=== PATIENT | female | born 1985 | race Caucasian/White ===

== ENCOUNTER 2018-06-09 20:18 | Inpatient (IN) | payer MEDICAID, OTHER ==
[2018-06-09] MEDS ORDERED: ONDANSETRON ODT 4 MG TAB PO STA (21:18)
--- NOTE | 2018-06-09 21:23 | ED ---
Psych HPI - General Source: patient Mode of arrival: ambulatory <Eliane Bhat - Last Filed: 06/10/18 02:35> <Nga Hi - Last Filed: 06/10/18 22:01> - General Chief Complaint: Psychiatric Symptoms Stated Complaint: Severely depressed, can't keep anything down Time Seen by Provider: 06/09/18 21:07 - History of Present Illness Initial Comments: 33-year-old female patient presents to the emergency department today with multiple complaints. Patient is currently a resident of [facility] for addiction to cocaine and heroin. Patient states that she has had no drugs or alcohol since 05/27/2018. Patient states that she currently has upper respiratory symptoms and a cough. Coughing up clear sputum. No fevers. States that she is experiencing depression and suicidal ideation. States that she has had severe depression since arriving to [place]. States that she did have suicidal ideation a couple of days ago. She denies any hallucinations. States that she is eating and drinking however she is having nausea after eating with every meal. Patient denies any vomiting. States she is constipated. Patient is also complaining of vaginal burning and odorous discharge. Denies any abdominal pain or new low back pain. She is concerned she may have an STD. She is unsure if she is . Patient denies any recent rash, shortness breath, chest pain, numbness, tingling, dizziness, weakness, hematuria, dysuria, urinary urgency, urinary frequency, headache, visual changes, or any other complaints. (Eliane Bhat) - Related Data Allergies Allergy/AdvReac Type Severity Reaction Status Date / Time benztropine [From Cogentin] Allergy Rash/Hives Verified 06/10/18 10:29 fluphenazine [From Prolixin] Allergy Anaphylaxis Verified 06/10/18 10:29 haloperidol [From Haldol] Allergy Anaphylaxis Verified 06/10/18 10:29 Latex, Natural Rubber Allergy Rash/Hives Verified 06/10/18 10:29 paliperidone [From Invega] Allergy Unknown Verified 06/10/18 10:29 sertraline [From Zoloft] Allergy Hallucinati Verified 06/10/18 10:29 ons Review of Systems ROS Other: All systems not noted in ROS Statement are negative. <Eliane Bhat - Last Filed: 06/10/18 02:35> ROS Other: All systems not noted in ROS Statement are negative. <Nga Hi P - Last Filed: 06/10/18 22:01> ROS Statement: Those systems with pertinent positive or pertinent negative responses have been documented in the HPI. Past Medical History Past Medical History: No Reported History History of Any Multi-Drug Resistant Organisms: None Reported Past Surgical History: Breast Surgery Past Psychological History: PTSD Smoking Status: Current every day smoker Past Alcohol Use History: Abuse Past Drug Use History: Cocaine, Heroin, Opiates <Eliane Bhat M - Last Filed: 06/10/18 02:35> General Exam Limitations: no limitations General appearance: alert, in no apparent distress, other (This is a well- developed, well-nourished adult female patient in no acute distress. Vital signs upon presentation are temperature 98.2F, pulse 77, respirations 20, blood pressure 102/70, pulse ox 99% on room air.) Eye exam: Present: normal appearance, PERRL, EOMI. Absent: scleral icterus, conjunctival injection, periorbital swelling ENT exam: Present: normal exam, normal oropharynx, mucous membranes moist Neck exam: Present: normal inspection. Absent: tenderness, meningismus, lymphadenopathy Respiratory exam: Present: normal lung sounds bilaterally. Absent: respiratory distress, wheezes, rales, rhonchi, stridor Cardiovascular Exam: Present: regular rate, normal rhythm, normal heart sounds. Absent: systolic murmur, diastolic murmur, rubs, gallop, clicks GI/Abdominal exam: Present: soft, tenderness (mild suprapubic tenderness), normal bowel sounds. Absent: distended, guarding, rebound, rigid External exam: Present: normal external exam Speculum exam: Present: vaginal discharge (White discharge), other (Painful speculum exam. ) By manual exam: Present: normal by manual exam. Absent: cervical motion tenderness, adnexal tenderness Neurological exam: Present: alert, oriented X3, CN II-XII intact Psychiatric exam: Present: normal affect, normal mood Skin exam: Present: warm, dry, intact, normal color. Absent: rash <Eliane Bhat M - Last Filed: 06/10/18 02:35> Vital Signs 06/09/18 06/10/18 06/10/18 20:54 07:28 08:04 Temperature 98.2 F 98.5 F Pulse Rate 77 68 Respiratory 20 15 Rate Blood Pressure 102/70 101/65 O2 Sat by Pulse 99 99 Oximetry 06/10/18 16:08 Temperature 98 F Pulse Rate 68 Respiratory 18 Rate Blood Pressure 110/70 O2 Sat by Pulse 99 Oximetry Medical Decision Making - Lab Data Result diagrams: 06/09/18 23:35 06/09/18 23:35 - Radiology Data Radiology results: report reviewed, image reviewed <Eliane Bhat - Last Filed: 06/10/18 02:35> - Lab Data Result diagrams: 06/09/18 23:35 06/09/18 23:35 <Nga Hi - Last Filed: 06/10/18 22:01> - Medical Decision Making 33-year-old female patient presented to the emergency department today for evaluation of suicidal ideation. Patient was also complaining of nausea. She was concerned about STDs. Patient labs reviewed and are unremarkable. We did treat patient for STDs with Rocephin, azithromycin, and Flagyl. She was seen and evaluated by emergency psychiatric services. Is felt that she would benefit from inpatient admission at this time however we do not have beds available so she will be transferred. Petition was filed by emergency psych services nurse and certification was performed by my attending Dr. Hi. (Eliane Bhat) The patient was seen and evaluated, the patient did endorse to me that she is feeling suicidal and does plan to complete suicide by overdose on heroin. The patient was petition and I completed the clinical certification, I do feel the patient requires inpatient psychiatric evaluation. Patient was medically cleared for transfer to a psychiatric facility. (Nga Hi) - Lab Data Lab Results 06/09/18 06/09/18 06/09/18 Range/Units 21:52 21:52 23:35 WBC (3.8-10.6) k/uL RBC (3.80-5.40) m/uL Hgb (11.4-16.0) gm/dL Hct (34.0-46.0) % MCV (80.0-100.0) fL MCH (25.0-35.0) pg MCHC (31.0-37.0) g/dL RDW (11.5-15.5) % Plt Count (150-450) k/uL Neutrophils % % Lymphocytes % % Monocytes % % Eosinophils % % Basophils % % Neutrophils # (1.3-7.7) k/uL Lymphocytes # (1.0-4.8) k/uL Monocytes # (0-1.0) k/uL Eosinophils # (0-0.7) k/uL Basophils # (0-0.2) k/uL Sodium (137-145) mmol/L Potassium (3.5-5.1) mmol/L Chloride (98-107) mmol/L Carbon Dioxide (22-30) mmol/L Anion Gap mmol/L BUN (7-17) mg/dL Creatinine (0.52-1.04) mg/dL Est GFR (CKD-EPI)AfAm (>60 ml/min/1.73 sqM) Est GFR (CKD-EPI)NonAf (>60 ml/min/1.73 sqM) Glucose (74-99) mg/dL Calcium (8.4-10.2) mg/dL Total Bilirubin (0.2-1.3) mg/dL AST (14-36) U/L ALT (9-52) U/L Alkaline Phosphatase (38-126) U/L Total Protein (6.3-8.2) g/dL Albumin (3.5-5.0) g/dL Amylase (30-110) U/L Lipase (23-300) U/L Urine Color Yellow Urine Appearance Cloudy H (Clear) Urine pH 6.0 (5.0-8.0) Ur Specific Canvas 1.026 (1.001-1.035) Urine Protein Trace H (Negative) Urine Glucose (UA) Negative (Negative) Urine Ketones Trace H (Negative) Urine Blood Negative (Negative) Urine Nitrite Negative (Negative) Urine Bilirubin Negative (Negative) Urine Urobilinogen 3.0 (<2.0) mg/dL Ur Leukocyte Esterase Small H (Negative) Urine RBC 1 (0-5) /hpf Urine WBC 4 (0-5) /hpf Ur Squamous Epith Cells 12 H (0-4) /hpf Urine Bacteria Occasional H (None) /hpf Urine Mucus Many H (None) /hpf Urine HCG, Qual Not Detected (Not Detectd) Urine Opiates Screen Not Detected (NotDetected) Ur Oxycodone Screen Not Detected (NotDetected) Urine Methadone Screen Not Detected (NotDetected) Ur Propoxyphene Screen Not Detected (NotDetected) Ur Barbiturates Screen Not Detected (NotDetected) U Tricyclic Antidepress Not Detected (NotDetected) Ur Phencyclidine Scrn Not Detected (NotDetected) Ur Amphetamines Screen Not Detected (NotDetected) U Methamphetamines Scrn Not Detected (NotDetected) U Benzodiazepines Scrn Not Detected (NotDetected) Urine Cocaine Screen Not Detected (NotDetected) U Marijuana (THC) Screen Not Detected (NotDetected) Trichomonas Ag (Rapid) Negative (Negative) 06/09/18 06/09/18 Range/Units 23:35 23:35 WBC 6.2 (3.8-10.6) k/uL RBC 4.19 (3.80-5.40) m/uL Hgb 10.4 L (11.4-16.0) gm/dL Hct 32.7 L (34.0-46.0) % MCV 78.2 L (80.0-100.0) fL MCH 24.8 L (25.0-35.0) pg MCHC 31.7 (31.0-37.0) g/dL RDW 15.1 (11.5-15.5) % Plt Count 312 (150-450) k/uL Neutrophils % 45 % Lymphocytes % 41 % Monocytes % 7 % Eosinophils % 4 % Basophils % 1 % Neutrophils # 2.8 (1.3-7.7) k/uL Lymphocytes # 2.5 (1.0-4.8) k/uL Monocytes # 0.4 (0-1.0) k/uL Eosinophils # 0.3 (0-0.7) k/uL Basophils # 0.1 (0-0.2) k/uL Sodium 139 (137-145) mmol/L Potassium 4.1 (3.5-5.1) mmol/L Chloride 107 (98-107) mmol/L Carbon Dioxide 25 (22-30) mmol/L Anion Gap 7 mmol/L BUN 16 (7-17) mg/dL Creatinine 0.80 (0.52-1.04) mg/dL Est GFR (CKD-EPI)AfAm >90 (>60 ml/min/1.73 sqM) Est GFR (CKD-EPI)NonAf >90 (>60 ml/min/1.73 sqM) Glucose 96 (74-99) mg/dL Calcium 9.2 (8.4-10.2) mg/dL Total Bilirubin 0.1 L (0.2-1.3) mg/dL AST 15 (14-36) U/L ALT 23 (9-52) U/L Alkaline Phosphatase 38 (38-126) U/L Total Protein 6.8 (6.3-8.2) g/dL Albumin 4.1 (3.5-5.0) g/dL Amylase 55 (30-110) U/L Lipase 105 (23-300) U/L Urine Color Urine Appearance (Clear) Urine pH (5.0-8.0) Ur Specific Canvas (1.001-1.035) Urine Protein (Negative) Urine Glucose (UA) (Negative) Urine Ketones (Negative) Urine Blood (Negative) Urine Nitrite (Negative) Urine Bilirubin (Negative) Urine Urobilinogen (<2.0) mg/dL Ur Leukocyte Esterase (Negative) Urine RBC (0-5) /hpf Urine WBC (0-5) /hpf Ur Squamous Epith Cells (0-4) /hpf Urine Bacteria (None) /hpf Urine Mucus (None) /hpf Urine HCG, Qual (Not Detectd) Urine Opiates Screen (NotDetected) Ur Oxycodone Screen (NotDetected) Urine Methadone Screen (NotDetected) Ur Propoxyphene Screen (NotDetected) Ur Barbiturates Screen (NotDetected) U Tricyclic Antidepress (NotDetected) Ur Phencyclidine Scrn (NotDetected) Ur Amphetamines Screen (NotDetected) U Methamphetamines Scrn (NotDetected) U Benzodiazepines Scrn (NotDetected) Urine Cocaine Screen (NotDetected) U Marijuana (THC) Screen (NotDetected) Trichomonas Ag (Rapid) (Negative) - Radiology Data Two-view x-ray of the chest is obtained. Heart mediastinum are normal. Lungs are clear. Diaphragm is normal. Bony thorax appears normal. Impression by Dr. Ji shows normal chest. (Eliane Bhat) Disposition - Out of Hospital Transfer - Req. Specs Out of Hospital Transfer - Requested Specifics: Psychiatric Non-ICU <Eliane Bhat M - Last Filed: 06/10/18 02:35> <Nga Hi - Last Filed: 06/10/18 22:01> Clinical Impression: Suicidal ideation, STI (sexually transmitted infection) Disposition: TRANSFER TO PSYCH HOSP/UNIT Condition: Serious Referrals: None,Stated [Primary Care Provider] - 1-2 days
[2018-06-09 22:03] LABS: Appearance,Urine Cloudy (Clear); Bacteria,Urine Occasional /hpf; Bilirubin,Urine Negative (Negative); Blood,Urine Negative (Negative); Color,Urine Yellow; Glucose,Urine (UA) Negative (Negative); Ketones,Urine Trace (Negative); Leukocyte Esterase,Urine Small (Negative); Mucus,Urine Many /hpf; Nitrite,Urine Negative (Negative); Protein,Urine Trace (Negative); RBC,Urine 1 /hpf (0-5); Specific Gravity,Urine 1.026 (1.001-1.035); Squamous Epithelial Cell,Urine 12 /hpf (0-4); WBC,Urine 4 /hpf (0-5)
[2018-06-09 22:16] LABS: Amphetamine Screen,Urine Not Detected (NotDetected); Barbiturate Screen,Urine Not Detected (NotDetected); Benzodiazepines Screen,Urine Not Detected (NotDetected); Cocaine Screen,Urine Not Detected (NotDetected); Methadone Screen, Urine Not Detected (NotDetected); Opiate Screen,Urine Not Detected (NotDetected); Oxycodone Screen, Urine Not Detected (NotDetected); Phencyclidine Screen,Urine Not Detected (NotDetected); Tricyclic Antidepressant,Urine Not Detected (NotDetected); Urn Cannabinoid Scrn Not Detected (NotDetected)
--- NOTE | 2018-06-09 22:34 | XR ---
EXAMINATION TYPE: XR chest 2V DATE OF EXAM: 06/09/2018 COMPARISON: NONE HISTORY: Anxiety chest pain TECHNIQUE: Frontal and lateral views of the chest are obtained. FINDINGS: Heart and mediastinum are normal. Lungs are clear. Diaphragm is normal. Bony thorax appear s normal. IMPRESSION: Normal chest
[2018-06-09] MEDS ORDERED: SODIUM CHLORIDE 0.9% 1,000 ML IV ONE (23:23)
[2018-06-09 23:48] LABS: Basophils # (A) 0.1 k/uL (0-0.2); Basophils % (A) 1 %; Eosinophils # (A) 0.3 k/uL (0-0.7); Eosinophils % (A) 4 %; HCT 32.7 % (34.0-46.0); HGB 10.4 gm/dL (11.4-16.0); Lymphocytes # (A) 2.5 k/uL (1.0-4.8); Lymphocytes % (A) 41 %; MCH 24.8 pg (25.0-35.0); MCHC 31.7 g/dL (31.0-37.0); MCV 78.2 fL (80.0-100.0); Mean Platelet Volume 7.5; Monocytes # (A) 0.4 k/uL (0-1.0); Monocytes % (A) 7 %; Neutrophils # (A) 2.8 k/uL (1.3-7.7); Neutrophils % (A) 45 %; Platelet Count 312 k/uL (150-450); RBC 4.19 m/uL (3.80-5.40); RDW 15.1 % (11.5-15.5); WBC 6.2 k/uL (3.8-10.6)
[2018-06-09 23:58] LABS: ALT 23 U/L (9-52); AST 15 U/L (14-36); Albumin 4.1 g/dL (3.5-5.0); Alkaline Phosphatase 38 U/L (38-126); Amylase 55 U/L (30-110); Anion Gap 7 mmol/L; Blood Urea Nitrogen 16 mg/dL (7-17); Calcium 9.2 mg/dL (8.4-10.2); Carbon Dioxide 25 mmol/L (22-30); Chloride 107 mmol/L (98-107); Glucose 96 mg/dL (74-99); Lipase 105 U/L (23-300); Potassium 4.1 mmol/L (3.5-5.1); Sodium 139 mmol/L (137-145); Total Bilirubin 0.1 mg/dL (0.2-1.3); Total Protein 6.8 g/dL (6.3-8.2)
[2018-06-10] MEDS ORDERED: metroNIDAZOLE 500 MG TAB PO STA (02:13)
[2018-06-10] MEDS ORDERED: cefTRIAXone 250 MG VIAL IM STA (02:13)
[2018-06-10] MEDS ORDERED: AZITHROMYCIN 500 MG TAB PO STA (02:13)
[2018-06-10] MEDS ORDERED: BENZONATATE 100 MG CAP PO STA (08:02)
[2018-06-10] MEDS ORDERED: NICOTINE 21MG/24HR PATCH TRANSDERM STA (15:38)
[2018-06-10] MEDS ORDERED: hydrOXYzine HCL 50 MG/ML 1 ML VIAL IM STA (20:20)
[2018-06-11 14:31] LABS: C. trachomatis,PCR Negative (Neg,Equiv); Chlamydia trachomatis Source Vagina; N. gonorrhoeae,PCR Negative (Neg,Equiv); Neisseria Source Cervix
[2018-06-11] MEDS ORDERED: guaiFENesin SYRUP 100MG/5ML 200 MG/10 ML CUP PO PRN (21:31)
[2018-06-12] MEDS ORDERED: MAG HYDROX/AL HYDROX/SIMETH 30 ML CUP PO PRN (14:57)
[2018-06-12] MEDS ORDERED: MAGNESIUM HYDROXIDE 2,400 MG/10 ML CUP PO PRN (14:57)
[2018-06-12] MEDS ORDERED: ACETAMINOPHEN TAB 325 MG TAB PO PRN (14:57)
[2018-06-12] MEDS: NICOTINE 14MG/24HR PATCH TRANSDERM SCH (16:11)
[2018-06-12] MEDS ORDERED: AZITHROMYCIN 500 MG TAB PO STA (17:57)
--- NOTE | 2018-06-12 18:00 | P.HPMEDMHU ---
History of Present Illness H&P Date: 06/12/18 Chief Complaint: Suicidal ideation 33-year-old female with no past medical history presents to the ED for suicidal ideation. Patient reports her suicidal ideation began when she felt dope sick. Patient states she has not consumed any drugs or alcohol since 05/27/2018. Patient has no specific complaints today, she would like to leave the Psychiatry unit. She endorses lower extremity swelling, only when hospitalized. Patient reports a productive cough for the past week. Cough is productive of green sputum. Patient endorses sick contacts in rehab. Note, patient reports nausea especially with meals. She denies any vomiting. She denies any changes in urination. Patient reports constipation, last bowel movement was today. Patient denies any changes in sleep or appetite. In the ED chest x-ray was negative. Review of lab work showed hemoglobin of 10.4. UA showed trace proteinuria, small leukocyte esterase. Review of Systems All systems: negative Past Medical History Past Medical History: No Reported History History of Any Multi-Drug Resistant Organisms: None Reported Past Surgical History: Breast Surgery Past Psychological History: PTSD Smoking Status: Current every day smoker Past Alcohol Use History: Abuse Past Drug Use History: Cocaine, Heroin, Opiates Medications and Allergies Home Medications Medication Instructions Recorded Confirmed Type No Known Home Medications 06/10/18 06/10/18 History Allergies Allergy/AdvReac Type Severity Reaction Status Date / Time benztropine [From Cogentin] Allergy Rash/Hives Verified 06/10/18 10:29 fluphenazine [From Prolixin] Allergy Anaphylaxis Verified 06/10/18 10:29 haloperidol [From Haldol] Allergy Anaphylaxis Verified 06/10/18 10:29 Latex, Natural Rubber Allergy Rash/Hives Verified 06/10/18 10:29 paliperidone [From Invega] Allergy Unknown Verified 06/10/18 10:29 sertraline [From Zoloft] Allergy Hallucinati Verified 06/10/18 10:29 ons Physical Exam Vitals: Vital Signs Temp Pulse Pulse Resp BP BP Pulse Ox 06/12/18 12:40 87 18 131/69 06/12/18 12:39 98 F 68 16 124/70 100 06/12/18 06:45 98.6 F 86 18 131/61 98 06/11/18 22:01 97.8 F 81 16 112/54 98 Intake and Output 06/12/18 06/12/18 06/12/18 06:59 14:59 22:59 Other: Weight 72.631 kg General: non toxic, no distress, appears at stated age Derm: warm, dry Head: atraumatic, normocephalic, symmetric Eyes: EOMI, no lid lag, anicteric sclera Mouth: no lip lesion, mucus membranes moist Cardiovascular: S1S2 reg, no murmur, positive posterior tibial pulse bilateral, Lungs: CTA bilateral, no rhonchi, no rales , no accessory muscle use Abdominal: soft, nontender to palpation, no guarding, no appreciable organomegaly Ext: no gross muscle atrophy, 1+ non pitting edema, no contractures Neuro: CN II-XI grossly intact, no focal neuro deficits Psych: Alert, oriented, appropriate affect Cranial Nerve Examination - Cranial Nerves Cranial Nerve II- Optic: Intact Cranial Nerve III- Oculomotor: Intact Cranial Nerve IV- Trochlear: Intact Cranial Nerve V- Trigeminal: Intact Cranial Nerve - Abducens: Intact Cranial Nerve VII- Facial: Intact Cranial Nerve VIII- Auditory: Intact Cranial Nerve IX- Glossopharyngeal: Intact Cranial Nerve X- Vagus: Intact Cranial Nerve XI- Accessory: Intact Cranial Nerve XII- Hypoglossal: Intact Results CBC & Chem 7: 06/09/18 23:35 06/09/18 23:35 Thrombosis Risk Factor Assmnt - Choose All That Apply Any of the Below Risk Factors Present?: No Other Risk Factors: No Other congenital or acquired thrombophilia - If yes, enter type in comment: No Thrombosis Risk Factor Assessment Level: Very Low Risk Assessment and Plan Assessment: Assessment and Plan 1. LE swelling: Non pitting. Trace protein on UA. No signs of HF during H&P. Will continue to monitor. 2. Cervical radiculopathy: Chronic pain per patient. Tylenol 650 mg PO Q4 PRN. 3. Nausea: Related to meals per patient. Trial of Maalox 30 ml PO Q4 PRN. Will add Pepcid 20 mg PO BID. Continue to monitor. 4. Cough: CXR normal. Likely acute bronchitis. Will try Mucinex 1200 mg PO BID. Azithromycin 500 mg PO QD x 3 days. 5. Substance abuse: Nicotine patch. 6. Anemia: Hg 10.4 Hct 32.7 MCV 78.2 likely Fe def. anemia. Continue to monitor. 7. Bacteruria: Asymptomatic. Bacteria on UA but dirty. Repeat.
[2018-06-12] MEDS: guaiFENesin 600 MG TABLET.ER PO SCH (21:00)
[2018-06-12] MEDS: FAMOTIDINE 20 MG TAB PO SCH (21:01)
[2018-06-13] MEDS: guaiFENesin 600 MG TABLET.ER PO SCH ×2 (08:42→21:08)
[2018-06-13] MEDS: FAMOTIDINE 20 MG TAB PO SCH ×2 (08:42→21:09)
[2018-06-13] MEDS: NICOTINE 14MG/24HR PATCH TRANSDERM SCH (08:43)
[2018-06-13] MEDS: DULoxetine HCL 30 MG CAPSULE.DR PO SCH (09:54)
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
[2018-06-14] MEDS: FAMOTIDINE 20 MG TAB PO SCH ×2 (09:56→20:29)
[2018-06-14] MEDS: NICOTINE 14MG/24HR PATCH TRANSDERM SCH (09:56)
[2018-06-14] MEDS: guaiFENesin 600 MG TABLET.ER PO SCH ×3 (09:56→20:29)
[2018-06-14] MEDS: DULoxetine HCL 30 MG CAPSULE.DR PO SCH (09:56)
--- NOTE | 2018-06-14 10:15 | P.PN ---
Progress Note - Text Interval history: The patient is found in her room she reluctantly follows me to the library to speak. She states her mood is good. She reports the Cymbalta gave her severe nausea yesterday and she vomited and she will no longer take that medication. She states that she will not take any psychotropic medication. She states that she wants to be discharged so that she can go to her three-quarter house. I did inform her that [facility] was willing to have her return if she is stable. She reports eating breakfast this morning she states that she did sleep off and on last night staff recorded she slept throughout the night. She has not been participating in groups this morning she is encouraged to do so. Mental status exam: The patient is alert eye contact is intermittent. She has little spontaneous speech but does provide an answer to questions asked. She reports her mood is good affect is bland. She reports some discomfort being in crowds and talking to people about her personal information. She is reporting no auditory or visual hallucinations she is endorsing no specific delusions today. She demonstrates mild psychomotor slowing. She appears distracted but again denies any hallucinations or racing thoughts. Insight and judgment limited. She demonstrates no verbal or physical aggressiveness. She maintains a calm demeanor throughout the interaction. He demonstrates no abnormal involuntary movements. Plan: The patient's will be monitored for safety. She is encouraged to participate in the milieu so that staff members can interact with her which will aid in our assessment of her current status. It is difficult to tell if she is underreporting symptoms. Vital signs reviewed. I will confer with staff during treatment team meeting regarding her behavior over the last 24 hours. She does seem to have a good plan of returning to [facility] and then later three-quarter housing afterwards.
[2018-06-15] MEDS: NICOTINE 14MG/24HR PATCH TRANSDERM SCH (11:12)
[2018-06-15] MEDS: DULoxetine HCL 30 MG CAPSULE.DR PO SCH (11:12)
[2018-06-15] MEDS: FAMOTIDINE 20 MG TAB PO SCH ×2 (11:12→20:17)
[2018-06-15] MEDS: guaiFENesin 600 MG TABLET.ER PO SCH ×2 (11:12→20:16)
--- NOTE | 2018-06-15 11:30 | P.PN ---
Progress Note - Text Interval history: The patient is found in her room she follows me to an interview room. She reports her mood is better today. Staff report that she continues to avoid a.m. groups but did make it to some of the groups in the afternoon yesterday. It appears she was more verbal and less guarded. Again she is able to return to [facility] upon discharge so long is a perceive she is stable to complete their program. The patient is encouraged to participate fully in the milieu so that we able to fully evaluate her and provide that information to [facility]. She continues to not want any psychotropic medication prescribed. She states that she is using this time to think about changes she will have to make in her life. She states after leaving [facility] she will attend a three-quarter home in [place]. She states she doesn't know anyone there but that will be of benefit. Mental status exam: The patient is alert she is still somewhat guarded she is more expressive verbally than yesterday. She demonstrates more range of affect. She reports no acute suicidal or homicidal ideation intent or plan. She is endorsing no auditory or visual hallucinations or specific delusions. Again there is some concern she may be underreporting symptoms. She demonstrates no verbal or physical aggressiveness. She is oriented to person place and date. She has some spontaneous speech but mainly response to questions posed to her. Insight and judgment limited. Plan: We will continue to evaluate the patient she is encouraged to fully participate in the milieu. She does not wish to take any psychotropic medications. If she demonstrates sufficient stability she may be appropriate for discharge in the next 1-2 days. Vital signs reviewed.
[2018-06-16 07:09] VITALS: BP 98/50; PULSE 71; RESP 18; TEMP 98.5
[2018-06-16] MEDS: guaiFENesin 600 MG TABLET.ER PO SCH ×2 (09:24→20:48)
[2018-06-16] MEDS: NICOTINE 14MG/24HR PATCH TRANSDERM SCH (09:25)
[2018-06-16] MEDS: FAMOTIDINE 20 MG TAB PO SCH ×2 (09:25→20:47)
--- NOTE | 2018-06-16 10:07 | P.PN ---
Progress Note - Text Progress Note Date: 06/16/18 Interval History: Patient is a 33-year-old female being seen in coverage for Dr. Scruggs. Patient came to the interview room, before coming to the interview room with me she retrieved a notebook and other papers that were under the covers in bed with her and brought them to the interview room. Patient states that she is ready to go back to rehab because she is no longer feeling suicidal. Patient could not tell me why she been feeling suicidal at [facility] other than that she was in withdrawal however the patient had been at [facility] from May 29 until June 09. Patient states that she doesn't need any medications and doesn't have any complaints or symptoms currently. Mental Status: Appearance/Attitude: Patient is casually dressed, makes no eye contact and was superficially cooperative. Behavior: Patient does not exhibit any psychomotor agitation or retardation Speech/Language: Patient's speech is of normal volume and rhythm and she is coherent Thought Process: Patient's responses are goal directed however brief and non- elaborative and she only responds to questions Thought Content: Patient denies auditory or visual hallucinations no delusions or paranoid ideation were elicited. However the patient had a notebook and other papers under the covers in bed with her which she retrieved and brought to my office and never used to show me anything or review with me. Patient states that she is sleeping here but doesn't feel rested because of the interruptions. She says that she attends groups only in the afternoon. Patient states that there is nothing wrong with her and that she had been feeling suicidal at [facility] due to withdrawing from heroin however the patient had been at [facility] for 11 days prior to her transfer to our hospital. Suicidal/Homicidal Ideation: Patient denies any current suicidal or homicidal ideation Sensorium/Cognition: Patient is alert and oriented to person, place and time Mood/Affect: Patient's mood is guarded her affect is blunted Insight/Judgment: Patient's insight and judgment are fair Assessment: Patient came with me to the interview room bringing papers in a notebook with her which were not used and had been kept under the covers in her room with her. Patient remains guarded, she responds only to questions with very brief and non-elaborative responses. Patient states that she was feeling suicidal due to hair when withdrawal although she had been at [facility] for 11 days at time of her transfer. Patient does not feel she needs medication and feels she is ready to leave the hospital. Patient states that she is ready to go back to [facility] that she has not been attending many groups or activities. Patient slept for 6 hours last night. Plan: Patient is currently not receiving any psychotropic medication, continue to encourage the patient to attend and participate in groups and activities to assess her readiness for transfer back to [facility] rehab program. Patient was encouraged to attend groups and activities and participate and consider discharge early next week if this is the case.
[2018-06-17] MEDS: guaiFENesin 600 MG TABLET.ER PO SCH ×2 (09:15→20:20)
[2018-06-17] MEDS: NICOTINE 14MG/24HR PATCH TRANSDERM SCH (09:16)
[2018-06-17] MEDS: FAMOTIDINE 20 MG TAB PO SCH ×2 (09:16→20:20)
--- NOTE | 2018-06-17 12:00 | P.PN ---
Progress Note - Text Progress Note Date: 06/17/18 Interval history: Patient is seen in cross coverage today. She was found in her room, she is agreeable to come to the interview room. She reports that her mood is doing better. She plans on going back to rehab after discharge from the mental health unit. She then plans on going to a three-quarter house. She relays that she is motivated for sobriety. Mental status exam: She is alert and cooperative with the interview. Her speech is fluent, not rapid or pressured. Her thought processes are organized. Her mood she describes is improved. She denies any current thoughts of suicide. She says she has not had any thoughts of suicide since she has been on the mental health unit. She does not voice any thoughts of harming others. There is no evidence of active psychosis. She does not show any agitation. Plan: We'll continue to see this patient in coverage through the weekend and continue to monitor her status. She is looking at discharge planning for Tuesday.
[2018-06-18] MEDS: FAMOTIDINE 20 MG TAB PO SCH ×2 (09:59→20:12)
[2018-06-18] MEDS: guaiFENesin 600 MG TABLET.ER PO SCH ×2 (09:59→20:12)
[2018-06-18] MEDS: NICOTINE 14MG/24HR PATCH TRANSDERM SCH (10:00)
--- NOTE | 2018-06-18 12:38 | P.PN ---
Progress Note - Text Progress Note Date: 06/18/18 Interval history: Patient reports that he slept only about 3 hours last night. She states it's hard for her sleep in the hospital with the checks. She does plan on going back to [facility] after discharge tomorrow and reports that she is motivated to finish her treatment there. She is seen again in cross coverage today. Mental status exam: She is alert and cooperative with the interview. Speech is fluent, not rapid or pressured. Her thought processes are organized. Her mood appears to be stable. She denies any thoughts of harm to self or others. No evidence of psychosis or any agitation. Plan: Plan for patient to return to [facility] to complete treatment there after discharge plans for tomorrow. Continue to monitor patient's status, she denies any thoughts of harm to self or others and relays she has not had any such thoughts since she's been on the unit.
[2018-06-19] MEDS: FAMOTIDINE 20 MG TAB PO SCH ×2 (08:16→20:09)
[2018-06-19] MEDS: NICOTINE 14MG/24HR PATCH TRANSDERM SCH (08:17)
[2018-06-19] MEDS: guaiFENesin 600 MG TABLET.ER PO SCH ×2 (08:17→20:09)
--- NOTE | 2018-06-19 12:27 | P.PN ---
Progress Note - Text Progress Note Date: 06/19/18 Interval History: Patient is a 33-year-old female who was seen today who again brought her notebook and other papers with her but did not refer to them during her interview. Patient has not been attending groups or activities and states that she doesn't because she is anxious. When I asked her how she was going to attend groups at [facility] she stated that she only has to do one week of that "shit" and then she is going to her three-quarter house. Patient states that she's forced to go to groups there and states she came here because she was suicidal there at [facility] due to withdrawing as soon as she got here she wasn't suicidal any longer. Mental Status: Appearance/Attitude: Patient is casually dressed, makes no eye contact and is superficially cooperative Behavior: Patient does not display any psychomotor agitation or retardation Speech/Language: Patient's speech is spontaneous of normal volume and rhythm and she is coherent Thought Process: Patient is goal-directed although her responses are brief limited and non-elaborative Thought Content: Patient denies auditory or visual hallucinations and no paranoid or delusional ideation is elicited. Patient states she is not going to groups because she is anxious in groups, patient states that she's forced to attend groups and [facility] and only has to attend them for 1 more week before she is released to her three-quarter house. Patient is sleeping and eating Suicidal/Homicidal Ideation: Patient denies any current suicidal or homicidal ideation Sensorium/Cognition: Patient is alert and oriented to person, place, and time Mood/Affect: Patient's mood is sullen and her affect is blunted Insight/Judgment: Patient's insight and judgment are fair Assessment: Patient states that she is not attending groups here because she is not forced to and she is anxious in groups. When I discussed possible trial of an antidepressant to target her anxiety she declined. Patient continues to bring her belongings to the meeting with me, and notebook and other papers that makes a reference to them during our meeting. Patient states that she was suicidal when she was at [facility] due to her withdrawal but as soon as she arrived here she was no longer feeling suicidal. Patient has not been attending groups or activities. Plan: A is not currently on any medication and was encouraged to attend groups and activities today and declined any medication for her complaints of anxiety in groups. Plan will be for patient to return to [place] to complete her treatment and possible discharge tomorrow.
[2018-06-20] MEDS: guaiFENesin 600 MG TABLET.ER PO SCH (09:31)
[2018-06-20] MEDS: NICOTINE 14MG/24HR PATCH TRANSDERM SCH (09:31)
[2018-06-20] MEDS: FAMOTIDINE 20 MG TAB PO SCH (09:31)
--- NOTE | 2018-06-20 11:35 | P.DS ---
Providers Date of admission: 06/12/18 12:02 Expected date of discharge: 06/20/18 Attending physician: Edmund Scruggs Consults: 06/12/18 14:57 Consult Physician Routine Consulting Provider: Ash Cavazos Consult Reason/Comments: follow Up H & P Do you want consulting provider notified?: Yes Primary care physician: Stated None - Discharge Diagnosis(es) (1) Depression Current Visit: Yes Status: Acute Priority: High (2) Cocaine use disorder Current Visit: Yes Status: Acute Priority: High (3) Alcohol use disorder Current Visit: Yes Status: Acute Priority: High (4) Opioid use disorder Current Visit: Yes Status: Acute Priority: High Hospital Course: Brief summary of admission note: This patient is a 33-year-old female who presented to the mental health unit through the emergency room with suicidal ideation. The patient had been at [facility] since May 29 the patient was sent to us with acute suicidal ideation. She reported feeling hopeless and overwhelmed. She described having disturbance of sleep low energy and being tearful. She described feelings of anxiety since being off of illicit drugs. She had described concerns that staff at [facility] were putting things in the patient's food to make him sick. For full details please refer to my psychiatric evaluation dated 06/13/2018. Summary hospital course: The patient was admitted to the mental health unit she did sign in voluntarily. We reviewed her presenting symptoms and treatment options. She was willing to try Cymbalta for depression and anxiety but after 1 dose reported an adverse reaction and discontinued the medication. She states she did not want any other psychotropic medication and she had described a long list of adverse reactions to others tried in the past. She felt that she was improving because she was in a safe environment and had more time off of illicit drugs. She reported she wanted to return to [facility] to complete her treatment there and was looking forward to three quarter house placement in [place]. She was seen by internal medicine for routine history and physical exam. The patient states that she has no suicidal ideation no homicidal ideation and no longer has concerns about people trying to harm her. Mental status exam: The patient is a female appearing her stated age. She is dressed in her own clothing hygiene is adequate she is wearing makeup. She attends to the interview she answers questions in a linear fashion. She does have some spontaneous speech and continues to describe future oriented thinking in wanting to go to the three quarter house program. She is reporting no suicidal or homicidal ideation intent or plan. She reports no auditory or visual hallucinations or any specific delusions. She states she no longer has concerns about people contaminating her food and she feels she presented with those symptoms as a residual effect from illicit drug use. She demonstrates no verbal or physical aggressiveness. She is oriented to person place and date. Affect remains constricted eye contact is intermittent. She demonstrates no abnormal involuntary movements. Impressions 1. Depression unspecified, rule out major depressive disorder, rule out post manic stress disorder, cocaine use disorder, opiate use disorder, alcohol use disorder 2. Homeless, unemployment, limited support Plan: The patient will be discharged mental health unit today. She is reporting no thoughts of harming herself or others she is endorsing no symptoms of psychosis she is demonstrating no agitated behavior. She does not appear overtly psychotic hypomanic or manic. She does not require continued hospitalization on an involuntary basis. She does not wish to take a psychotropic medication. She will transfer back to [facility] to complete her inpatient chemical dependency treatment with the plan of transitioning to [place] for three quarter home placement. She is instructed to abstain from all use of alcohol or any other substances as they will elevate her safety risk. She is instructed to return to the hospital with any acute safety concerns. Patient Condition at Discharge: Stable Plan - Discharge Summary Discharge Rx Participant: No New Discharge Prescriptions: New Nicotine 14Mg/24Hr Patch [Habitrol] 1 patch TRANSDERM DAILY #10 patch Discharge Medication List Nicotine 14Mg/24Hr Patch [Habitrol] 1 patch TRANSDERM DAILY #10 patch 06/20/18 [ Rx] Follow up Appointment(s)/Referral(s): [facility] [NON-STAFF] - 1 Week Patient Instructions/Handouts: How to Stop Smoking (GEN) Activity/Diet/Wound Care/Special Instructions: Continue your medications as prescribed. Keep your follow up appointments as scheduled. No alcohol or street drugs. No access to guns or weapons. Diet and activity as tolerated. Crisis line if needed .
== END 2018-06-20 13:45 | disposition home or self-care (01) | DRG 881 ==
LOC: EC 20:18 → 3MHU 06-12 12:02
PROVIDERS: ADMIT Psychiatry & Neurology Psychiatry; ATTEND Psychiatry & Neurology Psychiatry
DX: F32.9 Major depressive disorder, single episode, unspecified (principal); R45.851 Suicidal ideations; A64 Unspecified sexually transmitted disease; R11.0 Nausea; R05 Cough; F17.200 Nicotine dependence, unspecified, uncomplicated; Z91.040 Latex allergy status; Z88.8 Allergy status to other drugs, medicaments and biological substances; Z53.29 Procedure and treatment not carried out because of patient's decision for other reasons; F14.10 Cocaine abuse, uncomplicated; F10.10 Alcohol abuse, uncomplicated; F11.10 Opioid abuse, uncomplicated
CPT/HCPCS: 36415; 71046; 80053; 80306; 81001; 81025; 82075; 82150; 83690; 84443; 85025; 87491; 87591; 87808